=== PATIENT | female | born 1955 | race Caucasian/White ===

== ENCOUNTER 2022-08-31 17:47 | Emergency (ER) | payer MEDICARE, OTHER ==
[2022-08-31] MEDS ORDERED: Sodium Chloride 0.9% 10 ML Syringe FLUSH PRN (17:58)
[2022-08-31] MEDS ORDERED: Sodium Chloride 0.9% 1,000 ML IV ONE ×2 (17:58→18:50)
[2022-08-31 18:13] LABS: BASOPHILS PERCENT AUTO 0.6 % (0.0-1.0); EOSINOPHILS PERCENT AUTO 1.8 % (1.0-3.0); HEMATOCRIT 34.1 % (37.0-47.0); HEMOGLOBIN 11.5 g/dL (12.0-16.0); LYMPHOCYTES PERCENT AUTO 13.6 % (20.5-50.1); MEAN CORPUSCULAR HEMOGLOBIN 33.3 pg (27.0-34.0); MEAN CORPUSCULAR HGB CONC 33.7 g/dL (33.0-35.0); MEAN CORPUSCULAR VOLUME 98.8 fL (80-100); MONOCYTES PERCENT AUTO 10.5 % (2-8); NEUTROPHILS PERCENT AUTO 73.5 % (42.2-75.2); PLATELET COUNT,PLT 208 10^3/uL (150-450); RED BLOOD CELL COUNT 3.45 10^6/uL (4.2-5.4); WHITE BLOOD CELL COUNT,WBC 7.1 10^3/uL (5.0-10.0)
[2022-08-31 18:33] LABS: LACTIC ACID 1.3 mmol/L (0.4-2.0)
[2022-08-31 18:38] LABS: A/G RATIO 1.3; ANION GAP 14.6 mEq/L (7-13); BILIRUBIN TOTAL 0.2 mg/dL (0.2-1.0); BUN/CREATININE RATIO 16.3 (No establ ref range); CALCIUM 7.6 mg/dL (8.5-10.1); CREATININE 0.92 mg/dL (0.55-1.02); EST CRCL DRUG DOSING (CG) 61.16 mL/min; MAGNESIUM 1.6 mg/dL (1.8-2.4); POTASSIUM,K 3.6 mmol/L (3.5-5.1); PROTEIN TOTAL,TP 5.3 g/dL (6.4-8.2); TSH ULTRASENSITIVE 8.44 uIU/mL (0.36-3.74)
[2022-08-31 18:48] LABS: INR 0.9 (0.9-1.2); PROTHROMBIN TIME 9.3 SEC (9.0-12.0); PTT,PARTIAL THROMBOPLSTIN TIME 24.2 SEC (22.0-34.0)
[2022-08-31] MEDS ORDERED: Magnesium Oxide 400 MG Tab PO ONE (18:51)
[2022-08-31] MEDS ORDERED: Magnesium Oxide 400 MG Tab ONE (19:01)
[2022-09-01] MEDS ORDERED: Magnesium Oxide 400 MG Tab PO ONE (18:51)
== END 2022-08-31 21:14 | disposition left against medical advice (07) ==
LOC: DL.ED 17:47
DX: R55 Syncope and collapse (principal); E03.8 Other specified hypothyroidism; Z88.0 Allergy status to penicillin; Z88.5 Allergy status to narcotic agent
CPT/HCPCS: 36415; 71045; 80053; 80307; 83605; 83735; 83880; 84443; 84484; 85025; 85610; 85730; 93005; 93010; 96360; 96361; 99284; 99285; A9270; J7030; J3490